=== PATIENT | male | born 1935 | race Caucasian/White ===

== ENCOUNTER 2024-04-17 16:17 | Inpatient (IN) | payer MEDICARE ==
[2024-04-17] MEDS ORDERED: Furosemide 40 MG (4 mL) VIAL ONE (17:24)
[2024-04-17 17:57] LABS: ALT (SGPT) 27 U/L (8-55); AST (SGOT) 27 U/L (5-34); Albumin 2.3 g/dL (3.4-4.8); Alkaline Phosphatase 116 U/L (40-110); Anion Gap 16 mmol/L (10-20); BUN (Urea Nitrogen) 59 mg/dL (8.4-25.7); Bilirubin, Total 0.8 mg/dL (0.2-1.2); Calc. Creatinine Clearance 0 mL/min (70-130); Calcium 9.1 mg/dL (7.8-10.44); Carbon Dioxide 22 mmol/L (23-31); Chloride 105 mmol/L (98-107); Estimated GFR 51; Globulin 2.8 g/dL (2.4-3.5); Glucose 99 mg/dL (83-110); Potassium 5.2 mmol/L (3.5-5.1); Protein, Total 5.1 g/dL (5.8-8.1); Sodium 138 mmol/L (136-145)
[2024-04-17 17:59] LABS: Troponin I 0.036 ng/mL (< 0.028)
[2024-04-17 18:03] LABS: #Basophils 0.05 10x3/uL (0.0-0.2); #Eosinophils 0.14 10x3/uL (0.0-0.5); #Monocytes 0.74 10x3/uL (0.0-1.1); #Neutrophils 7.88 10x3/uL (1.5-8.4); %Basophils 0.5 % (0.0-2.0); %Eosinophils 1.5 % (0.0-6.0); %Lymphocytes 7.8 % (18.0-47.0); %Monocytes 7.7 % (0.0-10.0); Hematocrit 35.6 % (38.8-50.0); Hemoglobin 11.1 g/dL (13.5-17.5); Mean Corpuscular HGB CONC 31.2 g/dL (32.0-36.0); Mean Corpuscular Hemoglobin 27.7 pg (27.0-33.0); Mean Corpuscular Volume 88.8 fL (81.2-95.1); Mean Platelet Volume 10.9 fL (7.4-10.4); Platelet Count 140 10x3/uL (150-450); RBC Distribution Width 16.4 % (11.5-14.5); Red Blood Cell (RBC) Count 4.01 10x6/uL (4.32-5.72); White Blood Cell (WBC) Count 9.6 10x3/uL (3.5-10.5)
[2024-04-17] MEDS ORDERED: DOBUTamine 500 mg/250 ml 250 ML ONE (18:07)
[2024-04-17] MEDS ORDERED: traMADol HCl 50 MG TAB PO PRN (19:35)
[2024-04-17] MEDS ORDERED: Senokot S 8.6-50 MG TAB PO PRN (19:35)
[2024-04-17] MEDS ORDERED: Calcium Carbonate 500 MG ChewTAB PO PRN (19:35)
[2024-04-17] MEDS ORDERED: Acetaminophen 325 MG TAB PO PRN (19:35)
[2024-04-17 21:04] VITALS: BMI 29.9
[2024-04-17] MEDS: Albumin 25% 25 GM (100 mL) BOT IVPB SCH (22:27)
[2024-04-17] MEDS: Rosuvastatin 10 MG TAB PO SCH (22:30)
[2024-04-17] MEDS: Midodrine HCl 5 MG TAB PO SCH (22:32)
[2024-04-17] MEDS: Pyridostigmine Bromide IR 60 MG TAB PO SCH (22:32)
[2024-04-18 03:24] LABS: #Basophils 0.03 10x3/uL (0.0-0.2); #Eosinophils 0.24 10x3/uL (0.0-0.5); #Monocytes 0.75 10x3/uL (0.0-1.1); %Basophils 0.4 % (0.0-2.0); %Eosinophils 2.8 % (0.0-6.0); %Lymphocytes 8.7 % (18.0-47.0); %Monocytes 8.8 % (0.0-10.0); %Neutrophils 78.9 % (40.0-75.0); Hematocrit 33.2 % (38.8-50.0); Hemoglobin 10.7 g/dL (13.5-17.5); Mean Corpuscular HGB CONC 32.2 g/dL (32.0-36.0); Mean Corpuscular Hemoglobin 28.4 pg (27.0-33.0); Mean Corpuscular Volume 88.1 fL (81.2-95.1); Mean Platelet Volume 10.1 fL (7.4-10.4); Platelet Count 115 10x3/uL (150-450); RBC Distribution Width 16.3 % (11.5-14.5); Red Blood Cell (RBC) Count 3.77 10x6/uL (4.32-5.72); White Blood Cell (WBC) Count 8.5 10x3/uL (3.5-10.5)
[2024-04-18 04:02] LABS: Anion Gap 16 mmol/L (10-20); BUN (Urea Nitrogen) 57 mg/dL (8.4-25.7); CK (CPK) 42 U/L (30-200); Calc. Creatinine Clearance 60 mL/min (70-130); Carbon Dioxide 23 mmol/L (23-31); Chloride 105 mmol/L (98-107); Estimated GFR 59; Glucose 86 mg/dL (83-110); Potassium 4.8 mmol/L (3.5-5.1); Sodium 139 mmol/L (136-145)
[2024-04-18] MEDS: Furosemide 20 MG (2 mL) VIAL SLOW IVP SCH (06:36)
[2024-04-18] MEDS: Levothyroxine Sodium 100 MCG TAB PO SCH (06:37)
[2024-04-18] MEDS: Enoxaparin 40 MG (0.4 mL) SYRINGE SC SCH (10:04)
[2024-04-18] MEDS: Pantoprazole DR 40 MG TAB PO SCH (10:04)
[2024-04-18] MEDS: FLU (Fluad Triv) TS24-25 (65UP)/MF59C/PF 45 MCG/0.5 ML Syringe IM ONE (10:22)
[2024-04-18] MEDS: Apixaban 2.5 MG TAB PO SCH (21:10)
[2024-04-19 04:07] LABS: Anion Gap 15 mmol/L (10-20); BUN (Urea Nitrogen) 50 mg/dL (8.4-25.7); Calc. Creatinine Clearance 44 mL/min (70-130); Calcium 8.8 mg/dL (7.8-10.44); Carbon Dioxide 24 mmol/L (23-31); Chloride 105 mmol/L (98-107); Estimated GFR 83; Glucose 74 mg/dL (83-110); Potassium 4.3 mmol/L (3.5-5.1); Sodium 140 mmol/L (136-145)
[2024-04-19] MEDS ORDERED: Enoxaparin 30 MG (0.3 mL) SYRINGE SC SCH (09:00)
[2024-04-20 00:31] VITALS: TEMP 98.2
[2024-04-20] MEDS: Carvedilol 3.125 MG TAB PO SCH (08:48)
[2024-04-20 09:56] VITALS: BP 125/62
[2024-04-20] MEDS ORDERED: Apixaban 5 MG TAB PO SCH (21:00)
== END 2024-04-20 14:05 | disposition home health service (06) | DRG 291 ==
LOC: CSHERS 16:17 → CSHTELE 19:34
PROVIDERS: ADMIT Student in an Organized Health Care Education/Training Program; ATTEND Internal Medicine
PROC: 30233J1 Transfusion of Nonautologous Serum Albumin into Peripheral Vein, Percutaneous Approach (ICD-10-PCS; 2024-04-17)
PROC: 3E02340 Introduction of Influenza Vaccine into Muscle, Percutaneous Approach (ICD-10-PCS; principal; 2024-04-18)
DX: I11.0 Hypertensive heart disease with heart failure (principal); I50.23 Acute on chronic systolic (congestive) heart failure; N17.9 Acute kidney failure, unspecified; I48.11 Longstanding persistent atrial fibrillation; R79.89 Other specified abnormal findings of blood chemistry; E87.5 Hyperkalemia; I35.0 Nonrheumatic aortic (valve) stenosis; Z66 Do not resuscitate; Z95.0 Presence of cardiac pacemaker; Z90.49 Acquired absence of other specified parts of digestive tract; E03.9 Hypothyroidism, unspecified; I49.5 Sick sinus syndrome; Z79.890 Hormone replacement therapy; Z79.899 Other long term (current) drug therapy; Z87.891 Personal history of nicotine dependence; E78.5 Hyperlipidemia, unspecified; G70.00 Myasthenia gravis without (acute) exacerbation; Z79.01 Long term (current) use of anticoagulants
CPT/HCPCS: 36415; 71045; 80048; 80053; 82550; 83880; 84443; 84484; 85025; 93005; 93970; 96374; J1250; J1650; J1940; P9047